=== PATIENT | female | born 1995 | race Caucasian/White ===

== ENCOUNTER 2021-04-18 23:18 | Emergency (ER) | payer MEDICAID ==
[~2021-04-18] VITALS: Ht 165.1 cm; Wt 73.0 kg
[2021-04-19 00:38] LABS: BASOPHILS % 0.7 % (0.0-2.0); EOSINOPHILS % 1.3 % (0.0-5.0); HEMATOCRIT. 42.4 % (36.0-48.0); HEMOGLOBIN. 14.6 g/dL (12.0-16.0); LYMPHOCYTES % 18.7 % (20.0-50.0); MEAN CORPUSCULAR HEMOGLOBIN 28.8 pg (28.0-32.0); MEAN CORPUSCULAR VOLUME 83.8 fL (81.0-99.0); MEAN PLATELET VOLUME 10.3 fl (7.4-10.4); MONOCYTES % 7.7 % (2.0-8.0); NEUTROPHILS % 71.6 % (40.0-76.0); PLATELET 199 x1000/uL (130-400); RED BLOOD CELL COUNT 5.06 mill/uL (4.2-5.4); RED CELL DISTRIBUTION WIDTH 13.3 % (11.6-14.6)
[2021-04-19 00:40] LABS: CHLORIDE 108 mEq/L (98-107)
[2021-04-19 00:44] LABS: HCG SCREEN NEGATIVE
[2021-04-19] MEDS ORDERED: SODIUM CHLORIDE 0.9% 1,000 ML IV ONE (01:30)
[2021-04-19 02:15] VITALS: BP 125/82
== END 2021-04-19 02:47 | disposition left against medical advice (07) ==
LOC: ER 23:18
DX: R00.2 Palpitations (principal); Z53.29 Procedure and treatment not carried out because of patient's decision for other reasons; R42 Dizziness and giddiness
CPT/HCPCS: 36415; 71045; 80053; 84484; 84703; 85025; 85379; 93005; 99285; J7030

== ENCOUNTER 2021-06-12 20:31 | Emergency (ER) | payer MEDICAID, OTHER ==
[~2021-06-12] VITALS: Ht 165.1 cm; Wt 82.0 kg
[2021-06-12] MEDS ORDERED: LORAZEPAM 0.5MG TABLET PO ONE (21:15)
[2021-06-12 21:48] LABS: BASOPHILS % 0.4 % (0.0-2.0); EOSINOPHILS % 0.6 % (0.0-5.0); HEMATOCRIT. 41.1 % (36.0-48.0); HEMOGLOBIN. 14.7 g/dL (12.0-16.0); LYMPHOCYTES % 16.7 % (20.0-50.0); MEAN CORPUSCULAR HEMOGLOBIN 29.4 pg (28.0-32.0); MEAN CORPUSCULAR VOLUME 82.2 fL (81.0-99.0); MEAN PLATELET VOLUME 10.7 fl (7.4-10.4); MONOCYTES % 7.9 % (2.0-8.0); NEUTROPHILS % 74.4 % (40.0-76.0); PLATELET 192 x1000/uL (130-400); RED CELL DISTRIBUTION WIDTH 13.8 % (11.6-14.6)
[2021-06-12 21:54] LABS: CHLORIDE 108 mEq/L (98-107)
[2021-06-12 21:57] LABS: ETHANOL BLOOD < 10 mg/dL
[2021-06-12 23:49] VITALS: BP 135/61
== END 2021-06-12 23:50 | disposition home or self-care (01) ==
LOC: ER 21:21
DX: R07.89 Other chest pain (principal)
CPT/HCPCS: 36415; 71045; 80053; 80320; 85025; 85379; 93005; 99291; G0480